=== PATIENT | male | born 1985 | race Hispanic/Latino ===

== ENCOUNTER 2023-05-18 14:45 | Emergency (ER) | payer SELFPAY | END 2023-05-18 15:59 | disposition home or self-care (01) | LOC: ERS 14:45 | DX: S01.111D Laceration without foreign body of right eyelid and periocular area, subsequent encounter (principal); E11.9 Type 2 diabetes mellitus without complications; F17.200 Nicotine dependence, unspecified, uncomplicated; W22.8XXD Striking against or struck by other objects, subsequent encounter ==

== ENCOUNTER 2024-03-14 08:58 | Emergency (ER) | payer SELFPAY ==
[2024-03-14] MEDS ORDERED: Acetaminophen 500 MG TAB ONE (09:52)
[2024-03-14] MEDS ORDERED: Ketorolac Tromethamine 30 MG (1 mL) VIAL ONE (09:53)
== END 2024-03-14 10:10 | disposition home or self-care (01) ==
LOC: ERS 08:58
DX: M25.561 Pain in right knee (principal); M10.9 Gout, unspecified; E11.9 Type 2 diabetes mellitus without complications; F17.210 Nicotine dependence, cigarettes, uncomplicated
CPT/HCPCS: 96372; 99283; J1885